=== PATIENT | male | born 1980 | race African-American/Black ===

== ENCOUNTER 2022-10-13 21:24 | Emergency (ER) | payer OTHER, SELFPAY ==
[2022-10-13 21:27] VITALS: BP 150/98; PULSE 107; RESP 18; TEMP 37.1; O2SAT 99; BMI 27.6
--- NOTE | 2022-10-13 21:32 | DI.RAD.S_ITS ---
PROCEDURE: XR CHEST 1V INDICATIONS: chest pain TECHNIQUE: One view of the chest was acquired. COMPARISON: None. FINDINGS: Surgical changes and devices: None. Lungs and pleura: Lungs are clear. No pleural effusions or pneumothorax. Mediastinum: Mediastinal contours appear normal. Heart size is normal. Bones and chest wall: No suspicious bony lesions. Overlying soft tissues appear unremarkable. IMPRESSION: No acute cardiopulmonary abnormality. Approved by: Roque Magaña M.D. on 10/13/2022 at 22:06
[2022-10-13 21:51] LABS: INR 1.1 (0.9-1.3); Prothrombin Time 12.9 SECONDS (10.1-12.7)
[2022-10-13 21:52] LABS: Add Manual Diff / Slide Review NO; Basophils Absolute Auto 300 /uL (0-100); Basophils Percent Auto 1.4 % (0-2); Eosinophils Absolute Auto 100 /uL (0-450); Eosinophils Percent Auto 0.3 % (2-4); Hematocrit 45.9 % (41-53); Hemoglobin 15.6 g/dL (13.5-17.5); Lymphocytes Absolute Auto 3800 /uL (1100-4500); Lymphocytes Percent Auto 21.1 % (25-40); Mean Corpuscular HGB Conc 33.9 % (30-36); Mean Corpuscular Volume 85.4 fL (80-100); Monocytes Absolute Auto 1200 /uL (0-900); Monocytes Percent Auto 6.6 % (3-14); Neutrophils Absolute Auto 12600 /uL (1500-7000); Neutrophils Percent Auto 70.6 % (50-75); Platelet Count 262 X10^3/uL (150-400); Red Blood Cell Count 5.38 X10^6/uL (4.5-5.9); Red Cell Distribution Width 14.6 % (11.6-14.8); White Blood Cell Count 17.9 X10^3/uL (4.5-11.0)
[2022-10-13 21:54] LABS: PTT Partial Thromboplastin Tim 34 SECONDS (26-36)
[2022-10-13 21:56] LABS: HEMOLYSIS < 15 (0-50); Potassium 4.3 mmol/L (3.4-5.1)
[2022-10-13 21:57] LABS: Alanine Aminotransferase 34 IU/L (<50); Albumin 4.8 g/dL (3.5-5.0); Albumin Globulin Ratio 1.4 (1.0-2.8); Alkaline Phosphatase 74 U/L (38-126); Aspartate Aminotransferase 41 IU/L (17-59); BUN Creatinine Ratio 24.3 (6-22); Bilirubin Total 0.9 mg/dL (0.2-1.3); Blood Urea Nitrogen 26 mg/dL (9-20); Carbon Dioxide 29 mmol/L (22-32); Chloride 100 mmol/L (98-107); Creatine Kinase 539 U/L (55-170); Estimated Glomerular Filt Rate > 60 mL/min (>60); Globulin 3.4 g/dL (1.7-4.1); Magnesium 1.7 mg/dL (1.6-2.3); Sodium 135 mmol/L (137-145); Total Protein 8.2 g/dL (6.3-8.2)
[2022-10-13 22:08] LABS: Troponin I 0.021 ng/mL (0.01-0.034)
[2022-10-13 22:15] LABS: Lipase 83 U/L (23-300)
[2022-10-13 22:16] LABS: Glucose 103 mg/dL (70-100)
[2022-10-13 22:24] VITALS: PULSE 96; RESP 18; O2SAT 100
[2022-10-13 22:25] VITALS: BP 143/95; PULSE 100; RESP 25; O2SAT 100
[2022-10-13 22:30] VITALS: BP 141/90; PULSE 98; RESP 24; O2SAT 100
--- NOTE | 2022-10-13 22:58 | ED.CHESTPAIN ---
HPI - Chest Pain General Chief Complaint: Chest Pain Stated Complaint: Hiccups for three days Time Seen by Provider: 10/13/22 22:39 Source: patient Mode of arrival: Ambulatory Limitations: no limitations History of Present Illness HPI narrative: Patient is a 41-year-old male history of hypertension presenting today with hiccups and acid reflux ongoing for last 3 days. He said he is had periods with hiccups have gone about 2 hours however they been fairly persistent. After being in the emergency department for an hour and a half the hiccups have stopped for about 20 minutes. He is not been able to sleep. He definitely feels burning sensation in his chest. No palpitations no shortness of breath no nausea vomiting abdominal pain. He denies any fever or chills. He says this has happened once before but he did not require an ED visit. Related Data Previous Rx's Medication Instructions Recorded metoclopramide HCl 10 mg tablet 10 mg PO Q6H PRN nausea and 10/14/22 (Reglan) vomiting #20 tabs omeprazole 20 mg capsule,delayed 20 mg PO BID #30 caps 10/14/22 release Allergies Allergy/AdvReac Type Severity Reaction Status Date / Time No Known Drug Allergies Allergy Verified 10/13/22 21:31 Review of Systems Review of Systems ROS Unobtainable: All systems reviewed & are unremarkable except as noted in HPI and below Patient History Medical History High blood pressure Social History Smoking Status: Former smoker Smoking Status: Former smoker alcohol intake frequency: holidays/special occasions only Substance Use Type: does not use Exam Initial Vital Signs Initial Vital Signs: Vital Signs Temperature 98.7 F 10/13/22 21:27 Pulse Rate 107 H 10/13/22 21:27 Respiratory Rate 18 10/13/22 21:27 Blood Pressure 150/98 H 10/13/22 21:27 Pulse Oximetry 99 10/13/22 21:27 Oxygen Delivery Method Room Air 10/13/22 21:27 GENERAL: Alert pleasant well-appearing 41-year-old male HEENT: Head atraumatic,EOMI, pupils reactive, face symmetric, moist mucous membranes CARDIOVASCULAR: Regular rate and rhythm without murmurs, rubs or gallops. RESPIRATORY: Breath sounds equal bilaterally, no wheezes rales or rhonchi. ABDOMEN: Soft, nontender. Normoactive bowel sounds all 4 quadrants. No guarding or rebound. No right upper quadrant pain negative Neumann sign EXTREMITIES: Normal range of motion, no clubbing or edema. Neurovascularly intact NEUROLOGICAL: Alert and oriented x4. SKIN: Warm, dry, no laceration, no petechiae, no rashes or lesions. Scores HEART Score Heart Score history: Slightly Suspicious Heart Score EKG: Normal Heart Score Age: < 45 years old Heart Score risk factors: No known risk factors Heart Score troponin: < or = to normal limit Heart Score Total: 0 Course Orders Ordered: ED Orders 10/13/22 21:32 XR chest 1V Stat EKG-12 Lead Stat 10/13/22 21:38 Complete Blood Count AUTO DIFF Stat Comprehensive Metabolic Panel Stat Lipase Stat Magnesium Stat PTT Partial Thromboplastin Juanjose Stat Prothrombin Time INR Stat Troponin & CK Cardiac Panel Stat 10/13/22 23:34 Trop I [Troponin I] Stat Discontinued Medications Al Hydrox/Mg Hydrox/Simethicone (Mag Hydrox/Alum/Simeth 30 Ml Udc) 30 ml PO NOW ONE Stop: 10/14/22 00:45 Last Admin: 10/14/22 00:50 Dose: 30 ml Documented By: SUSSY Al Hydrox/Mg Hydrox/Simethicone 20 ml/ Lidocaine HCl 15 ml 0 ml PO NOW ONE Stop: 10/14/22 00:00 Metoclopramide HCl (Metoclopramide 10 Mg/2 Ml Inj) 10 mg IV NOW ONE Stop: 10/13/22 23:02 Last Admin: 10/13/22 23:10 Dose: 10 mg Documented By: SUSSY Pantoprazole Sodium (Pantoprazole 40 Mg Vial) 40 mg IV NOW ONE Stop: 10/13/22 22:59 Last Admin: 10/13/22 23:09 Dose: 40 mg Documented By: SUSSY Vital Signs Vital signs: Vital Signs - 8 hr 10/13/22 21:27 10/13/22 22:24 10/13/22 22:25 Temperature 98.7 F Pulse Rate 107 H 96 H 100 H Respiratory Rate 18 18 25 H Blood Pressure 150/98 H Pulse Oximetry 99 100 100 Oxygen Delivery Method Room Air 10/13/22 22:25 10/13/22 22:30 05/29/23 22:30 Temperature Pulse Rate 98 H Respiratory Rate 24 Blood Pressure 143/95 H 141/90 H Pulse Oximetry 100 Oxygen Delivery Method 10/13/22 23:00 10/13/22 23:00 10/13/22 23:30 Temperature Pulse Rate 101 H Respiratory Rate 17 Blood Pressure 170/103 H 146/83 H Pulse Oximetry 99 Oxygen Delivery Method 10/13/22 23:30 10/14/22 00:00 10/14/22 00:00 Temperature Pulse Rate 97 H 96 H Respiratory Rate 18 17 Blood Pressure 143/88 H Pulse Oximetry 97 100 Oxygen Delivery Method 10/14/22 00:30 10/14/22 00:30 Temperature Pulse Rate 95 H Respiratory Rate 17 Blood Pressure 139/83 Pulse Oximetry 97 Oxygen Delivery Method MDM - Chest Pain Lab Data 10/13/22 21:38 10/13/22 21:38 Labs: Lab Results 10/13/22 10/13/22 10/13/22 Range/Units 21:38 21:38 21:38 WBC 17.9 H (4.5-11.0) X10^3/uL RBC 5.38 (4.5-5.9) X10^6/uL Hgb 15.6 (13.5-17.5) g/dL Hct 45.9 (41-53) % MCV 85.4 (80-100) fL MCH 29.0 (26-34) PG MCHC 33.9 (30-36) % RDW 14.6 (11.6-14.8) % Plt Count 262 (150-400) X10^3/uL Neut % (Auto) 70.6 (50-75) % Lymph % (Auto) 21.1 L (25-40) % [place] % (Auto) 6.6 (3-14) % Eos % (Auto) 0.3 L (2-4) % Baso % (Auto) 1.4 (0-2) % Neut # (Auto) 66993 H (5104-4199) /uL Lymph # (Auto) 3800 (4464-9572) /uL [place] # (Auto) 1200 H (0-900) /uL Eos # (Auto) 100 (0-450) /uL Baso # (Auto) 300 H (0-100) /uL PT 12.9 H (10.1-12.7) SECONDS INR 1.1 (0.9-1.3) APTT 34 (26-36) SECONDS Sodium (137-145) mmol/L Potassium (3.4-5.1) mmol/L Chloride (98-107) mmol/L Carbon Dioxide (22-32) mmol/L BUN (9-20) mg/dL Creatinine (0.66-1.25) mg/dL Estimated GFR (>60) mL/min BUN/Creatinine Ratio (6-22) Glucose (70-100) mg/dL Calcium (8.4-10.2) mg/dL Magnesium (1.6-2.3) mg/dL Total Bilirubin (0.2-1.3) mg/dL AST (17-59) IU/L ALT (<50) IU/L Alkaline Phosphatase (38-126) U/L Total Creatine Kinase (55-170) U/L CK-MB (CK-2) CK-MB (CK-2) Rel Index Troponin I (0.01-0.034) ng/mL Total Protein (6.3-8.2) g/dL Albumin (3.5-5.0) g/dL Globulin (1.7-4.1) g/dL Albumin/Globulin Ratio (1.0-2.8) Lipase 83 (23-300) U/L 10/13/22 10/13/22 Range/Units 21:38 23:34 WBC (4.5-11.0) X10^3/uL RBC (4.5-5.9) X10^6/uL Hgb (13.5-17.5) g/dL Hct (41-53) % MCV (80-100) fL MCH (26-34) PG MCHC (30-36) % RDW (11.6-14.8) % Plt Count (150-400) X10^3/uL Neut % (Auto) (50-75) % Lymph % (Auto) (25-40) % [place] % (Auto) (3-14) % Eos % (Auto) (2-4) % Baso % (Auto) (0-2) % Neut # (Auto) (3968-9436) /uL Lymph # (Auto) (6355-5681) /uL [place] # (Auto) (0-900) /uL Eos # (Auto) (0-450) /uL Baso # (Auto) (0-100) /uL PT (10.1-12.7) SECONDS INR (0.9-1.3) APTT (26-36) SECONDS Sodium 135 L (137-145) mmol/L Potassium 4.3 (3.4-5.1) mmol/L Chloride 100 (98-107) mmol/L Carbon Dioxide 29 (22-32) mmol/L BUN 26 H (9-20) mg/dL Creatinine 1.07 (0.66-1.25) mg/dL Estimated GFR > 60 (>60) mL/min BUN/Creatinine Ratio 24.3 H (6-22) Glucose 103 H (70-100) mg/dL Calcium 10.0 (8.4-10.2) mg/dL Magnesium 1.7 (1.6-2.3) mg/dL Total Bilirubin 0.9 (0.2-1.3) mg/dL AST 41 (17-59) IU/L ALT 34 (<50) IU/L Alkaline Phosphatase 74 (38-126) U/L Total Creatine Kinase 539 H (55-170) U/L CK-MB (CK-2) TNP CK-MB (CK-2) Rel Index TNP Troponin I 0.021 0.016 (0.01-0.034) ng/mL Total Protein 8.2 (6.3-8.2) g/dL Albumin 4.8 (3.5-5.0) g/dL Globulin 3.4 (1.7-4.1) g/dL Albumin/Globulin Ratio 1.4 (1.0-2.8) Lipase (23-300) U/L Imaging Data Chest x-ray: Radiologist's Impression: PROCEDURE:? XR CHEST 1V ? INDICATIONS:? chest pain ? TECHNIQUE:? One view of the chest was acquired.? ? COMPARISON:? None. ? FINDINGS:? ? Surgical changes and devices:? None.? ? Lungs and pleura:? Lungs are clear.? No pleural effusions or pneumothorax.? ? Mediastinum:? Mediastinal contours appear normal.? Heart size is normal.? ? Bones and chest wall:? No suspicious bony lesions.? Overlying soft tissues appear unremarkable.? ? IMPRESSION:? No acute cardiopulmonary abnormality. ? ? ? Approved by: Roque Magaña M.D. on 10/13/2022 at 22:06? ECG Data Interpretation: Normal sinus rhythm rate 116 NM interval 120 QRS 80 QTC 4 in Q-waves noted in anterior leads no ST changes no priors to compare MDM Narrative Medical decision making narrative: Patient 41-year-old male presenting today with burning in his chest acid reflux and hiccups ongoing last 3 days. He is 2 negative troponins but does have a leukocytosis of 17.9 without infectious symptoms chest x-ray is clear. He is given Reglan and Protonix and a GI cocktail here in the ED which seems to help. Other blood work is reassuring electrolyte abnormality or LANCE. He is a low risk heart score. I have heard him hiccup in the emergency department he says that that has improved. At this time I feel comfortable letting him go home. Discharge Plan Departure Patient Disposition: Home Clinical Impression: [place] Instructions: Hiccups Activity Restrictions/Additional Instructions: Physical maneuvers Breath holding for 5 to 10 seconds (or as tolerated) Valsalva maneuver, holding for 5 to 10 seconds Swallowing a teaspoon of dry, granulated sugar Forceable traction (ie, pulling) on the tongue Biting on a lemon Pressing gently but firmly on the eyeballs While sitting, pulling the knees to the?chest (or leaning forward to compress the chest), holding for 30 seconds to 1 minute if possible Drinking water through a forced inspiratory suction and swallow device (ie, a rigid tube with a valve that requires significant suction effort) *You have been diagnosed with hiccups, acid reflux *What to do: You may require cardiac workup such as stress test and echocardiogram. Please take antacid medication as directed I think that may help her hiccups. *Continue to take medications as directed Reglan 10 mg every 6 hours if needed for hiccups nausea or vomiting Omeprazole 20 mg twice daily for acid reflux *Follow up with your primary care provider in 2-3 days or call [phone] *Return to ER if you should have increasing pain persistent hiccups vomiting nausea or any new, worsening or concerning symptoms Prescriptions: New metoclopramide HCl [Reglan] 10 mg tablet 10 mg PO Q6H PRN (Reason: nausea and vomiting) Qty: 20 0RF omeprazole 20 mg capsule,delayed release(DR/EC) 20 mg PO BID Qty: 30 0RF Referrals: ProviderJigna [Primary Care Provider] - Stand Alone Forms: Patient Portal/API
[2022-10-13 23:00] VITALS: BP 170/103; PULSE 101; RESP 17; O2SAT 99
[2022-10-13] MEDS: PANTOPRAZOLE 40 MG VIAL IV (23:09)
[2022-10-13] MEDS: METOCLOPRAMIDE 10 MG/2 ML INJ IV (23:10)
[2022-10-13 23:30] VITALS: BP 146/83; PULSE 97; RESP 18; O2SAT 97
[2022-10-14] VITALS: BP 143/88; PULSE 96; RESP 17; O2SAT 100
[2022-10-14 00:04] LABS: Troponin I 0.016 ng/mL (0.01-0.034)
[2022-10-14 00:30] VITALS: BP 139/83; PULSE 95; RESP 17; O2SAT 97
[2022-10-14] MEDS: MAG HYDROX/ALUM/SIMETH 30 ML UDC PO (00:50)
== END 2022-10-14 00:57 | disposition home or self-care (01) ==
PROVIDERS: Emergency Provider Emergency Medicine
DX: R06.6 Hiccough (principal); R07.9 Chest pain, unspecified
CPT/HCPCS: 36415; 71045; 80053; 82550; 83690; 83735; 84484; 85025; 85610; 85730; 93005; 93010; 96374; 96375; 99284; C9113; J2765